=== PATIENT | male | born 1990 | race Caucasian/White ===

== ENCOUNTER 2023-11-05 09:37 | Emergency (ER) | payer BC ==
[~2023-11-05] VITALS: Ht 177.8 cm; Wt 84.1 kg
[2023-11-05] MEDS ORDERED: AMOX-580 PO (09:50)
[2023-11-05] MEDS ORDERED: HYDR-3973 PO (09:50)
[2023-11-05 10:28] VITALS: BP 132/65; PULSE 70; RESP 16; TEMP 98.6; O2SAT 99
== END 2023-11-05 10:29 | disposition home or self-care (01) ==
LOC: ER 09:38
DX: K08.89 Other specified disorders of teeth and supporting structures (principal); K02.9 Dental caries, unspecified; Z88.1 Allergy status to other antibiotic agents; Z91.040 Latex allergy status; Z79.2 Long term (current) use of antibiotics
CPT/HCPCS: 99283